=== PATIENT | female | born 1990 | race American Indian/Alaskan Native ===

== ENCOUNTER 2018-11-27 11:22 | Outpatient (CLI) | payer MEDICAID ==
[2018-11-27] MEDS ORDERED: LACTATED RINGERS 500 ML IV ONE (12:10)
[2018-11-27 12:41] LABS: Bacteria,Urine 2+ /HPF (Negative); Bilirubin,Urine NEG (Negative); Blood,Urine NEG (Negative); Color,Urine Yellow (Yellow); Mucus,Urine FEW /HPF; Protein,Urine <15 mg/dL mg/dL (Negative); Urobilinogen,Urine < 2.0 mg/dL (<2.0)
[2018-11-29 12:02] VITALS: BP 108/61
== END 2018-11-27 13:17 | disposition home or self-care (01) ==
LOC: TRG 11:22
PROVIDERS: ATTEND Obstetrics & Gynecology
DX: O47.03 False labor before 37 completed weeks of gestation, third trimester (principal); Z3A.35 35 weeks gestation of pregnancy
CPT/HCPCS: 59025; 81001

== ENCOUNTER 2018-12-26 00:04 | Outpatient (CLI) | payer MEDICAID ==
[2018-12-26 00:07] VITALS: BP 103/55
== END 2018-12-26 02:00 | disposition home or self-care (01) ==
LOC: TRG 00:04
PROVIDERS: ATTEND Obstetrics & Gynecology
DX: O47.1 False labor at or after 37 completed weeks of gestation (principal); Z3A.39 39 weeks gestation of pregnancy; Z87.891 Personal history of nicotine dependence
CPT/HCPCS: 59025

== ENCOUNTER 2018-12-29 06:42 | Inpatient (IN) | payer MEDICAID ==
[2018-12-29] MEDS ORDERED: STADOL IV PRN (07:15)
[2018-12-29] MEDS ORDERED: BRETHINE IVP PRN (07:15)
[2018-12-29] MEDS ORDERED: AMPICILLIN/NS 2 GM/100 ML 2 GM/100 ML BAG IV ONE (07:15)
[2018-12-29] MEDS ORDERED: BRETHINE SUB-Q PRN (07:15)
--- NOTE | 2018-12-29 07:41 | History and Physical Report ---
History of Present Illness Date of examination: 12/29/18 Date of admission: 12/29/18 07:21 Chief complaint: contractions History of present illness: 28y/o @ 39+3 weeks presents in active labor with cervical dilation of 4cm. She denies leakage of fluid. Patient is a transfer OB @ 28 weeks. Patient has had STD exposure during the . She is +GBS. Past History Past Medical History: no pertinent history Past Surgical History: no surgical history Social history: single - Obstetrical History Expected Date of Delivery: 01/02/19 Actual Gestation: 39 Week(s) 3 Day(s) : 3 Para: 2 Hx # Term Pregnancies: 2 Number of Pregnancies: 0 Spontaneous Abortions: 0 Induced : 0 Number of Living Children: 2 Medications and Allergies Allergies Allergy/AdvReac Type Severity Reaction Status Date / Time ibuprofen Allergy Itching Verified 12/29/18 09:45 acetaminophen [From Vicodin] AdvReac Itching Verified 12/29/18 09:46 aspirin AdvReac Itching Verified 12/29/18 09:46 [From Excedrin Migraine] caffeine AdvReac Itching Verified 12/29/18 09:46 [From Excedrin Migraine] hydrocodone [From Vicodin] AdvReac Itching Verified 12/29/18 09:46 Active Meds: Active Medications Butorphanol Tartrate (Stadol) 2 mg IV Q2H PRN PRN Reason: Pain , Severe (7-10) Ephedrine Sulfate (Ephedrine Sulfate) 10 mg IV Q2M PRN PRN Reason: Hypotension Ampicillin Sodium (Polycillin/Ns 2 Gm/100 Ml) 2 gm in 100 mls @ 100 mls/hr IV ONCE ONE; Protocol Stop: 12/29/18 08:14 Ampicillin Sodium (Ampicillin/Ns 1 Gm/50 Ml) 1 gm in 50 mls @ 100 mls/hr IV Q4HR MARJORIE; Protocol Lactated Ringer's (Lactated Ringers) 1,000 mls @ 125 mls/hr IV DIRECT MARJORIE Oxytocin/Sodium Chloride (Pitocin/Ns 20 Unit/1000ml Drip) 20 units in 1,000 mls @ 125 mls/hr IV DIRECT MARJORIE Mineral Oil (Mineral Oil) 30 ml PO QHS PRN PRN Reason: Constipation Terbutaline Sulfate (Brethine) 0.25 mg SUB-Q ONCE PRN PRN Reason: Hyperstimulation/Hypertonicity Terbutaline Sulfate (Brethine) 0.25 mg IVP ONCE PRN PRN Reason: Hyperstimulation/Hypertonicity Review of Systems All systems: negative Genitourinary: contractions, no leakage of fluid - Vital Signs Vital signs: Vital Signs Temp Pulse Resp BP Pulse Ox 98.5 F 83 18 106/57 100 12/29/18 06:47 12/29/18 06:47 12/29/18 06:47 12/29/18 06:47 12/29/18 06:47 Temp Pulse Resp BP Pulse Ox 98.5 F 83 18 106/57 100 12/29/18 06:47 12/29/18 06:47 12/29/18 06:47 12/29/18 06:47 12/29/18 06:47 - Physical Exam Breasts: Positive: deferred Cardiovascular: Regular rate Lungs: Positive: Clear to auscultation Abdomen: Positive: normal appearance Results Result Diagrams: 12/29/18 08:00 All other labs normal. Assessment and Plan - Patient Problems (1) Active labor at term Current Visit: Yes Status: Acute Plan to address problem: admit to L&D
[2018-12-29] MEDS ORDERED: PITOCin/NS 20 UNIT/1000ML DRIP 20 UNITS/1,000 ML BAG IV SCH (08:00)
[2018-12-29] MEDS: LACTATED RINGERS 1,000 ML IV SCH ×2 (08:00→10:38)
[2018-12-29] MEDS ORDERED: XYLOCAINE 2% INFILTRATI NR (08:23)
[2018-12-29 08:28] LABS: Hematocrit 31.6 % (30.3-42.9); Hemoglobin 10.6 gm/dl (10.1-14.3); Mean Corpuscular HGB Conc 34 % (30-34); Mean Corpuscular Volume 84 fl (79-97); Platelet Count 286 K/mm3 (140-440); Red Blood Count 3.74 M/mm3 (3.65-5.03); Red Cell Distribution Width 14.8 % (13.2-15.2)
[2018-12-29] MEDS ORDERED: NARCAN 2 MG/2 ML IV PRN (09:34)
[2018-12-29] MEDS ORDERED: SUBLIMAZE ONE (09:39)
[2018-12-29] MEDS ORDERED: SENSORCAINE/DEXTR 0.75-8.25% INFILTRATI ONE (09:39)
[2018-12-29] MEDS ORDERED: fentaNYL-BUPIV 2 MCG/ML-0.125% 200 MCG/100 ML BAG EPIDURAL SCH (10:00)
[2018-12-29] MEDS ORDERED: AMPICILLIN/NS 1 GM/50 ML 1 GM/50 ML BAG IV SCH (11:17)
[2018-12-29] MEDS ORDERED: PITOCin/NS 30 UNIT/500ML 30 UNITS/500 ML BAG IV SCH (12:00)
--- NOTE | 2018-12-29 13:58 | Progress Note ---
Assessment and Plan A/P 39 weeks srom continue pitocin expect vaginal delivery Subjective - Subjective Date of service: 12/29/18 Principal diagnosis: srom at term Patient reports: loss of fluid, movement normal, contractions, no new co mplaints, no vaginal bleeding Objective - Vital Signs Vital Signs: Vital Signs - 12hr 12/29/18 12/29/18 12/29/18 06:47 09:59 10:00 Temperature 98.5 F Pulse Rate 83 94 H 89 Respiratory 18 18 Rate Blood Pressure 114/66 Blood Pressure 106/57 [Right] O2 Sat by Pulse 100 100 Oximetry 12/29/18 12/29/18 12/29/18 10:14 10:21 10:28 Temperature Pulse Rate 78 85 82 Respiratory Rate Blood Pressure 84/41 107/52 111/56 Blood Pressure [Right] O2 Sat by Pulse Oximetry 12/29/18 12/29/18 12/29/18 10:43 10:58 11:13 Temperature Pulse Rate 93 H 80 86 Respiratory Rate Blood Pressure 111/59 101/55 99/57 Blood Pressure [Right] O2 Sat by Pulse Oximetry 12/29/18 12/29/18 12/29/18 11:28 11:44 12:01 Temperature Pulse Rate 80 87 86 Respiratory Rate Blood Pressure 93/55 115/61 103/55 Blood Pressure [Right] O2 Sat by Pulse Oximetry 12/29/18 12/29/18 12/29/18 12:14 12:30 12:46 Temperature Pulse Rate 90 92 H 91 H Respiratory Rate Blood Pressure 105/56 112/64 119/63 Blood Pressure [Right] O2 Sat by Pulse Oximetry 12/29/18 12/29/18 13:00 13:15 Temperature Pulse Rate 83 79 Respiratory Rate Blood Pressure 109/64 103/62 Blood Pressure [Right] O2 Sat by Pulse Oximetry - Exam Breasts: normal Cardiovascular: Regular rate, Normal S1 Lungs: Clear to auscultation, Normal air movement Abdomen: Present: normal appearance, soft, normal bowel sounds. Absent: distention, tenderness, guarding Vulva: both: normal Uterus: Present: normal, firm, fundal height below umbilicus. Absent: bogginess, tenderness FHR: category 1 Cervical Dilatation: 7 Cervical Effacement Percentage: 80 station: -2 Uterine Contraction Pattern: Regular Uterine Tone Measurement Phase: Contraction Uterine Contraction Intensity: Moderate Deep Tendon Reflex Grade: Normal +2 - Labs Labs: Laboratory Results - last 24 hr 12/29/18 12/29/18 12/29/18 08:00 08:00 08:00 WBC 7.1 RBC 3.74 Hgb 10.6 Hct 31.6 MCV 84 MCH 28 MCHC 34 RDW 14.8 Plt Count 286 RPR Nonreactive Blood Type B POSITIVE Antibody Screen Negative
[2018-12-29] MEDS ORDERED: DULCOLAX PR PRN (15:51)
[2018-12-29] MEDS ORDERED: ZOFRAN IV PRN (15:51)
[2018-12-29] MEDS ORDERED: PHENERGAN PO PRN (15:51)
[2018-12-29] MEDS ORDERED: PHENERGAN PR PRN (15:51)
[2018-12-29] MEDS ORDERED: LANSINOH TP PRN (15:51)
[2018-12-29] MEDS ORDERED: TYLENOL PO PRN (15:51)
[2018-12-29] MEDS ORDERED: TUCKS PAD TP PRN (15:51)
[2018-12-29] MEDS ORDERED: BENADRYL PO PRN (15:51)
--- NOTE | 2018-12-29 15:51 | Procedure Note ---
OB Delivery Note - Delivery Date of Delivery: 12/29/18 Surgeon: DIANE JAMES Estimated blood loss: 200cc - Vaginal Delivery presentation: vertex Delivery position: OA Intrapartum events: none Delivery augmentation: pitocin Delivery monitor: external FHT Route of delivery: Delivery placenta: spontaneous Delivery cord: 3 umbilical vessels Episiotomy: none Delivery laceration: none Anesthesia: epidural Delivery comments: Patient progressed to C/C/+1 and pushed to deliver a liveborn male with Apgars of 8 and 9 weight 7 lbs. 12 oz. After delivery of the head and shoulders the infant was bulb suctioned and stimulated. The cord was clamped and cut and the infant was placed on the patient's abdomen. The placenta delivered spontaneously intact with a three-vessel cord. No lacerations were noted. Estimated blood loss was 200 mL - A at 1 minute: 8 at 5 minutes: 9 Gender: Male (weight 7 lbs. 12 oz.)
[2018-12-29] MEDS ORDERED: SODIUM CHLORIDE FLUSH SYRINGE 10 ML IV NR (16:00)
[2018-12-29] MEDS ORDERED: IBUPROFEN PO SCH (16:00)
[2018-12-29] MEDS ORDERED: MINERAL OIL PO PRN (22:00)
[2018-12-30] MEDS: NORCO 5/325 PO PRN ×2 (11:40→18:22)
[2018-12-30] MEDS: MILK OF MAGNESIA PO PRN ×2 (11:45→22:23)
[2018-12-30 12:13] LABS: Hematocrit 27.8 % (30.3-42.9); Hemoglobin 9.6 gm/dl (10.1-14.3)
--- NOTE | 2018-12-30 14:03 | Progress Note ---
Assessment and Plan - Patient Problems (1) Active labor at term Current Visit: Yes Status: Acute Plan to address problem: routine care Subjective - Subjective Date of service: 12/30/18 Principal diagnosis: srom at term Interval history: Patient bonding with infant. Pain is well controlled. Having some constipation Patient reports: appetite normal, voiding normally, pain well controlled [place]: doing well Objective - Vital Signs Latest vital signs: Vital Signs Temp Pulse Resp BP BP Pulse Ox 12/30/18 12:56 98.5 F 83 18 103/63 100 12/30/18 07:17 98.2 F 84 18 99/66 100 12/30/18 00:15 98.7 F 77 16 99/58 100 12/29/18 20:20 98.4 F 81 18 113/63 100 12/29/18 17:50 98.5 F 67 20 106/59 100 12/29/18 17:07 90 108/68 12/29/18 16:51 82 111/78 12/29/18 16:37 86 108/70 12/29/18 16:21 93 H 113/71 12/29/18 16:07 99 H 105/78 12/29/18 15:56 98 H 109/56 12/29/18 15:18 99 H 127/64 12/29/18 14:17 92 H 119/70 Intake and Output 12/29/18 12/30/18 12/30/18 22:59 06:59 14:59 Intake Total 960 Output Total 1400 600 Balance -1400 -600 960 Intake: Oral 600 Intake, Free Water 360 Output: Urine 1400 600 Void 1400 600 Other: Total, Intake Amount 240 Total, Output Amount 800 600 # Voids Void 1 1 1 Estimated Blood Loss 200 - Exam Abdomen: Present: normal appearance, soft - Labs Labs: Abnormal lab results 12/30/18 Range/Units 11:42 Hgb 9.6 L (10.1-14.3) gm/dl Hct 27.8 L (30.3-42.9) %
--- NOTE | 2018-12-30 14:05 | Discharge Summary ---
Providers - Providers Date of Admission: 12/29/18 07:21 Date of discharge: 12/31/18 Attending physician: CARLOZ JOHNSON MD Primary care physician: CARLOZ JOHNSON MD Hospitalization Reason for admission: active labor Delivery: Discharge diagnosis: IUP at term delivered [place] baby: male Hospital course: Patient admitted in active labor. Had a . unremarkable Condition at discharge: Good Disposition: DC-01 TO HOME OR SELFCARE - Discharge Diagnoses (1) Active labor at term Status: Acute Plan - Discharge Medications Prescriptions: Ibuprofen [Motrin] 800 mg PO Q8HR PRN #60 tablet PRN Reason: Pain, Mild (1-3) HYDROcodone/ACETAMINOPHEN [Ducor 5-325 Tablet] 1 each PO Q8H PRN #20 tablet PRN Reason: Pain, Mild (1-3) - Provider Discharge Summary Activity: no sex for 6 weeks, no heavy lifting 4 weeks, no strenuous exercise Diet: routine Instructions: routine Additional instructions: [] Smoking cessation referral if applicable(refer to patient education folder for contact #) [] Refer to [facility] Booklet Call your doctor immediately for: * Fever > 100.5 * Heavy vaginal bleeding ( >1 pad per hour) * Severe persistent headache * Shortness of breath * Reddened, hot, painful area to leg or breast * schedule visit in 4 weeks - Follow up plan
[2018-12-31] MEDS: NORCO 5/325 PO PRN (00:20)
[2018-12-31 12:45] VITALS: BP 105/64
== END 2018-12-31 12:35 | disposition home or self-care (01) | DRG 775 ==
LOC: TRG 06:42 → LD 07:21 → OB 17:48
PROVIDERS: ADMIT Obstetrics & Gynecology; ATTEND Obstetrics & Gynecology
PROC: 10E0XZZ Delivery of Products of Conception, External Approach (ICD-10-PCS; principal; 2018-12-29)
PROC: 3E0R3BZ Introduction of Anesthetic Agent into Spinal Canal, Percutaneous Approach (ICD-10-PCS; 2018-12-29)
PROC: 00HU33Z Insertion of Infusion Device into Spinal Canal, Percutaneous Approach (ICD-10-PCS; 2018-12-29)
DX: O99.824 Streptococcus B carrier state complicating childbirth (principal); O62.0 Primary inadequate contractions; Z3A.39 39 weeks gestation of pregnancy; Z37.0 Single live birth; Z88.6 Allergy status to analgesic agent
CPT/HCPCS: 36415; 85014; 85018; 85027; 86592; 86850; 86900; 86901; G0378; J0290; J0595; J2405; J2590; J3010; J7120